=== PATIENT | female | born 1980 | race Caucasian/White ===

== ENCOUNTER 2023-01-29 16:40 | Emergency (ER) | payer OTHER ==
[2023-01-29 16:47] VITALS: BP 159/88; PULSE 87; RESP 18; TEMP 98.4; BMI 28.3
[2023-01-29] MEDS ORDERED: ACETAMINOPHEN 500 MG TABLET (FP) PO ONE (19:49)
== END 2023-01-29 19:58 | disposition home or self-care (01) ==
LOC: JERFT 16:40
DX: J06.9 Acute upper respiratory infection, unspecified (principal); U07.1 COVID-19
CPT/HCPCS: 0241U-QW; 99283-25